=== PATIENT | female | born 1995 | race Caucasian/White ===

== ENCOUNTER 2019-04-24 12:58 | Emergency (ER) | payer MEDICAID, OTHER ==
[~2019-04-24] VITALS: Ht 152.4 cm; Wt 89.0 kg
[2019-04-24 13:03] VITALS: BP 135/60; PULSE 64; RESP 18; Ht 152.4 cm; Wt 89.0 kg
[2019-04-24] MEDS ORDERED: ACETAMINOPHEN 325 MG TAB PO ONE (13:30)
[2019-04-24] MEDS ORDERED: METO10TA92 PO (13:59)
[2019-04-24] MEDS ORDERED: ACET500C5 PO (13:59)
--- NOTE | 2019-04-24 19:48 | ERD ---
ER Documentation Chief Complaint Chief Complaint [address] [facility] HPI Is a 23-year-old G2, P1 female at approximately 18 weeks gestation presents to the ED complaining of headache since yesterday. Patient describes the pain as a pounding sensation, located behind her left eye and migrating towards the left occipital scalp. Patient reports associated blurry vision and nausea but no vomiting. Denies any neck stiffness. Denies head trauma. Denies any focal weakness. She also reports upper respiratory symptoms for the past 2 days. She reports a fever of 100 F yesterday, as well as a sore throat, runny nose and dry cough. She is 18 weeks , denies any vaginal bleeding or pelvic pain. No vaginal discharge. No urinary symptoms. No other complaints. ROS All systems reviewed and are negative except as per history of present illness. Medications Home Meds Active Scripts Metoclopramide* (Reglan*) 10 Mg Tablet, 10 MG PO Q6 PRN for NAUSEA AND/OR VOMITING, #10 TAB Prov:DISHIGRIKIAN,CHRISTALUR N PA-C 04/24/19 Acetaminophen* (Tylophen*) 500 Mg Capsule, 1 CAP PO Q6H PRN for PAIN AND OR ELEVATED TEMP, #20 CAP Prov:DISHIGRIKIAN,ZEPYUR N PA-C 04/24/19 Allergies Allergies: Coded Allergies: No Known Allergy (Unverified , 04/24/19) PMhx/Soc Medical and Surgical Hx: pt denies Medical Hx, pt denies Surgical Hx Hx Alcohol Use: No Hx Substance Use: No Hx Tobacco Use: No Smoking Status: Never smoker Physical Exam Vitals Vital Signs Date Temp Pulse Resp B/P (MAP) Pulse Ox O2 O2 Flow FiO2 Time Delivery Rate 04/24/19 98.1 64 18 135/60 99 13:03 (85) Physical Exam Const: No acute distress Head: Atraumatic Eyes: Normal Conjunctiva ENT: Normal External Ears, Nose and Mouth. + Posterior OP erythema, no tonsillar edema or exudates. Uvula midline. Normal phonation. Bilateral TMs nonerythematous, nonbulging. External auditory canals normal. Neck: Full range of motion. No meningismus. Resp: Clear to auscultation bilaterally Cardio: Regular rate and rhythm, no murmurs Abd: + Gravid abdomen. soft, non tender, non distended. Normal bowel sounds Skin: No petechiae or rashes Back: No midline or flank tenderness Ext: No cyanosis, or edema Neuro: M/S: Alert and oriented Face: EOMI, face and pharynx with normal sensation and function Motor: Normal strength throughout Sensation: Normal sensation throughout Speech: Normal Cerebel: Normal coordination Normal gait Results 24 hrs Current Medications Medications Dose Sig/Ulises Start Time Status Last (Trade) Ordered Route PRN Stop Time Admin Dose Reason Admin 650 mg ONCE ONCE 04/24/19 DC 04/24/19 Acetaminophen PO 13:30 04/24/19 13:32 (Tylenol 13:31 Tab) Procedures/MDM LABS & DIAGNOSTIC IMAGING: Rapid strep: neg ED COURSE: The patient was given Tylenol The medication was well tolerated and the patient had market improvement in symptoms. The patient remained stable throughout ED course. MEDICAL DECISION MAKIN-year-old female at 18 weeks gestation presents with headache and upper respiratory symptoms. She has no fever here. Vital signs are normal. No hypoxia. Lung sounds are clear on physical exam. She has no focal neurological deficits. I do not think patient needs any advanced imaging at this time. Her headache is likely related to her upper respiratory symptoms, migraine headache is also in the differential. Her symptoms improved after Tylenol. Clinical presentation not consistent with subarachnoid hemorrhage, epidural or subdural hematoma, IC mass, CVA, encephalitis or meningitis. Patient was discharge home with close follow up and mangement by PCP in 48 hours. Strict return precautions dicussed. PRESCRIPTIONS: Tylenol SPECIALIST FOLLOW UP RECOMMENDED: None Patient has been advised to follow up with primary care in 1-2 days. Departure Diagnosis: Primary Impression: Headache Headache type: unspecified Headache chronicity pattern: unspecified pattern Intractability: not intractable Qualified Codes: R51 - Headache Additional Impression: URI (upper respiratory infection) URI type: unspecified URI Qualified Codes: J06.9 - Acute upper respiratory infection, unspecified Condition: Stable Patient Instructions: Self-Care for Headaches Referrals: [facility] YOU HAVE RECEIVED A MEDICAL SCREENING EXAM AND THE RESULTS INDICATE THAT YOU DO NOT HAVE A CONDITION THAT REQUIRES URGENT TREATMENT IN THE EMERGENCY DEPARTMENT. FURTHER EVALUATION AND TREATMENT OF YOUR CONDITION CAN WAIT UNTIL YOU ARE SEEN IN YOUR DOCTORS OFFICE WITHIN THE NEXT 1-2 DAYS. IT IS YOUR RESPONSIBILITY TO MAKE AN APPOINTMENT FOR FOLOW-UP CARE. IF YOU HAVE A PRIMARY DOCTOR --you should call your primary doctor and schedule an appointment IF YOU DO NOT HAVE A PRIMARY DOCTOR YOU CAN CALL OUR PHYSICIAN REFERRAL HOTLINE AT IF YOU CAN NOT AFFORD TO SEE A PHYSICIAN YOU CAN CHOSE FROM THE FOLLOWING [facility] [address] [facility] [address] [facility] [address] [facility] [address] [facility] [address] [facility]. [facility] [address] Additional Instructions: Follow-up with your OB at the clinic. You can take the Tylenol for any headaches or fevers. If you start to notice uncontrollable fevers, worsening headaches, changes in vision or any other concerns, return here. Otherwise follow-up with your OB as scheduled. I am also prescribing you antinausea medications that he can also take. SABINA KYLE PA-C Apr 24, 2019 19:48
== END 2019-04-24 14:07 | disposition home or self-care (01) ==
LOC: FTE 12:58
DX: O99.89 Other specified diseases and conditions complicating pregnancy, childbirth and the puerperium (principal); R51 Headache; O99.512 Diseases of the respiratory system complicating pregnancy, second trimester; J06.9 Acute upper respiratory infection, unspecified; Z3A.18 18 weeks gestation of pregnancy
CPT/HCPCS: 87880; Z7502; Z7610; 99283

== ENCOUNTER 2019-05-01 05:54 | Emergency (ER) | payer MEDICAID ==
[~2019-05-01] VITALS: Ht 157.5 cm; Wt 79.2 kg
[~2019-05-01 05:54] MED LIST: ACET500C5 PO; METO10TA92 PO
[2019-05-01 05:56] VITALS: BP 127/76; PULSE 74; RESP 18; Ht 157.5 cm; Wt 79.2 kg
[2019-05-01] MEDS ORDERED: ACETAMINOPHEN 500 MG TAB PO STA (06:14)
[2019-05-01] MEDS ORDERED: SOD CHLORIDE 0.9% 1,000 ML IV STA (06:14)
[2019-05-01] MEDS ORDERED: ONDANSETRON (ODT) 4 MG TAB ODT STA (06:41)
[2019-05-01] MEDS ORDERED: ONDANSETRON 4 MG INJ IV STA (07:25)
[2019-05-01] MEDS ORDERED: ACET500C5 PO (07:44)
[2019-05-01] MEDS ORDERED: CALC300T4 PO (07:44)
[2019-05-01] MEDS ORDERED: ONDA4TAB14 PO (07:44)
[2019-05-01] MEDS ORDERED: RANI150T35 PO (07:44)
[2019-05-01] MEDS ORDERED: RANITIDINE 150 MG TAB PO ONE (08:00)
--- NOTE | 2019-05-01 08:50 | ERD ---
ER Documentation Chief Complaint Chief Complaint RUQ PAIN RADIATING TO BACK; HX GALSTONES HPI 23-year-old female presenting with right upper quadrant pain radiating to her back. Patient states she has episodes of vomiting. Patient is 18 weeks . Has a history of gallstones. Denies change in urination or bowel movement. Has not taken medications for her pain. Denies chest pain or shortness of breath. Denies medical problems. NKDA. Surgical history denies. Social history denies ROS All systems reviewed and are negative except as per history of present illness. Medications Home Meds Active Scripts Calcium Carbonate* (Tums X-Str) 300 Mg Tab.chew, 300 MG PO BID, #30 TAB.CHEW Prov:SOSA ROSARIO PA-C 05/01/19 Ranitidine Hcl* (Zantac*) 150 Mg Tablet, 150 MG PO BID PRN for EPIGASTRIC PAIN, #30 TAB Prov:SOSA ROSARIO PA-C 05/01/19 Ondansetron (Ondansetron Odt) 4 Mg Tab.rapdis, 4 MG PO Q6H PRN for NAUSEA AND/OR VOMITING, #10 TAB Prov:SOSA ROSARIO PA-C 05/01/19 Acetaminophen* (Tylophen*) 500 Mg Capsule, 2 CAP PO Q8H PRN for PAIN AND OR ELEVATED TEMP, #20 CAP Prov:SOSA ROSARIO PA-C 05/01/19 Metoclopramide* (Reglan*) 10 Mg Tablet, 10 MG PO Q6 PRN for NAUSEA AND/OR VOMITING, #10 TAB Prov:SABINA KYLEC 04/24/19 Acetaminophen* (Tylophen*) 500 Mg Capsule, 1 CAP PO Q6H PRN for PAIN AND OR ELEVATED TEMP, #20 CAP Prov:DISHIGRIKIANZEPYUR Tera BARBOUR-C 04/24/19 Allergies Allergies: Coded Allergies: No Known Allergy (Unverified , 04/24/19) PMhx/Soc Hx Miscellaneous Medical Probl: Yes (gallstones) Hx Alcohol Use: No Hx Substance Use: No Hx Tobacco Use: No Smoking Status: Never smoker FmHx Family History: No diabetes, No coronary disease, No other Physical Exam Vitals Vital Signs Date Temp Pulse Resp B/P (MAP) Pulse Ox O2 O2 Flow FiO2 Time Delivery Rate 05/01/19 97.0 74 18 127/76 100 05:56 (93) Physical Exam GENERAL: The patient is well-appearing, well-nourished, in no acute distress CHEST: Clear to auscultation bilaterally. There are no rales, wheezes or rhonchi. HEART: Regular rate and rhythm. No murmurs, clicks, rubs or gallops. ABDOMEN: Normal active bowel sounds. No distention. Tender palpation the epigastric region with no rebound tenderness. Result Diagram: 05/01/19 0633 05/01/19 0633 Results 24 hrs Laboratory Tests Test 05/01/19 06:33 White Blood Count 8.4 10^3/ul Red Blood Count 4.44 10^6/ul Hemoglobin 13.0 g/dl Hematocrit 39.0 % Mean Corpuscular Volume 87.8 fl Mean Corpuscular Hemoglobin 29.3 pg Mean Corpuscular Hemoglobin Concent 33.3 g/dl Red Cell Distribution Width 13.0 % Platelet Count 263 10^3/UL Mean Platelet Volume 9.7 fl Immature Granulocytes % 0.800 % Neutrophils % 68.3 % Lymphocytes % 25.5 % Monocytes % 3.7 % Eosinophils % 1.3 % Basophils % 0.4 % Nucleated Red Blood Cells % 0.0 /100WBC Immature Granulocytes # 0.070 10^3/ul Neutrophils # 5.7 10^3/ul Lymphocytes # 2.1 10^3/ul Monocytes # 0.3 10^3/ul Eosinophils # 0.1 10^3/ul Basophils # 0.0 10^3/ul Nucleated Red Blood Cells # 0.0 10^3/ul Urine Color YELLOW Urine Clarity SLIGHTLY CLOUDY Urine pH 5.0 Urine Specific [place] 1.027 Urine Ketones NEGATIVE mg/dL Urine Nitrite NEGATIVE mg/dL Urine Bilirubin NEGATIVE mg/dL Urine Urobilinogen NEGATIVE mg/dL Urine Leukocyte Esterase NEGATIVE Kayden/ul Urine Microscopic RBC 21 /HPF Urine Microscopic WBC 3 /HPF Urine Squamous Epithelial Cells FEW /HPF Urine Mucus FEW /HPF Urine Hemoglobin 3+ mg/dL Urine Glucose NEGATIVE mg/dL Urine Total Protein NEGATIVE mg/dl Sodium Level 141 mmol/L Potassium Level 3.7 mmol/L Chloride Level 106 mmol/L Carbon Dioxide Level 26 mmol/L Anion Gap 9 Blood Urea Nitrogen 8 mg/dl Creatinine 0.49 mg/dl Est Glomerular Filtrat Rate mL/min > 60 mL/min Glucose Level 103 mg/dl Calcium Level 9.5 mg/dl Total Bilirubin 0.3 mg/dl Direct Bilirubin 0.00 mg/dl Indirect Bilirubin 0.3 mg/dl Aspartate Amino Transf (AST/SGOT) 24 IU/L Alanine Aminotransferase (ALT/SGPT) 31 IU/L Alkaline Phosphatase 86 IU/L Total Protein 7.8 g/dl Albumin 4.1 g/dl Globulin 3.70 g/dl Albumin/Globulin Ratio 1.10 Lipase 33 U/L Current Medications Medications Dose Sig/Ulises Start Time Status Last (Trade) Ordered Route PRN Stop Time Admin Dose Reason Admin Sodium 1,000 ml @ Q1H STAT 05/01/19 DC 05/01/19 Chloride 1,000 mls/hr IV 06:14 06:44 05/01/19 07:13 1,000 mg ONCE STAT 05/01/19 DC 05/01/19 Acetaminophen PO 06:14 06:44 (Tylenol 05/01/19 06:16 Tab) Ondansetron 4 mg ONCE STAT 05/01/19 DC 05/01/19 HCl (Zofran ODT 06:41 06:44 Odt) 05/01/19 06:42 Ondansetron 2 mg ONCE STAT 05/01/19 DC 05/01/19 HCl (Zofran IV 07:25 07:48 Inj) 05/01/19 07:26 Ranitidine 150 mg ONCE ONCE 05/01/19 DC 05/01/19 HCl PO 08:00 07:48 (Zantac) 05/01/19 08:01 Procedures/MDM DIAGNOSTIC IMAGING REPORT Patient: NIKI OSULLIVAN : 1995 Age: 23 Sex: F MR #: [id number] DOS: 05/01/19613 Ordering MD: OLAYINKA ROSARIO PA-C Location: [facility] Room/Bed: PROCEDURE: US Abdomen. CLINICAL INDICATION: Pain TECHNIQUE: Multiple real-time images were acquired of the patient's abdomen and retroperitoneum utilizing a high resolution transducer. COMPARISON: None FINDINGS: Multiple gallstones without gallbladder wall thickening or pericholecystic fluid. Common bile duct mildly dilated maximal transverse diameter by 0.67 mm. No intrahepatic biliary ductal dilation. Only portions the pancreas could be visualized due to overlying bowel gas and those portions are unremarkable. The liver is enlarged maximal sagittal dimension 17.75 cm. Hepatic fatty infiltration. No focal hepatic lesions. Normal portal venous flow. Right kidney normal in size maximal sagittal mention 11.77 cm. Normal right renal parenchymal echogenicity without hydronephrosis intra renal mass or calculus. IMPRESSION: 1. Multiple gallstones without gallbladder wall thickening or pericholecystic. 2. Mild dilated common bile duct maximal transverse diameter 5.67 mm. Negative intrapelvic biliary ductal dilation. 3. Hepatomegaly with hepatic fatty infiltration. 4. Unremarkable right kidney and pancreas as described above. ER Course: 1 L normal saline given in ED. Ranitidine and Zofran with Tylenol given. MDM: 23-year-old female presenting with abdominal pain. I have low suspicion for bowel obstruction. Patient has findings consistent with nephrolithiasis however I have low suspicion for choledocholithiasis or cholangitis. I have low suspicion for Lesley cystitis. Patient is recommended however to return in 2 days of pain persists or worsens. Patient may need to have recheck done to ensure that there is no signs of choledocholithiasis. Patient's blood work is normal at today's visit. Patient is discharged with strict ER precautions and told to follow-up with primary care within 1 to 2 days for close evaluation. All questions answered at discharge Departure Diagnosis: Primary Impression: Gallstones Condition: Stable Patient Instructions: Gallstones Referrals: [facility] YOU HAVE RECEIVED A MEDICAL SCREENING EXAM AND THE RESULTS INDICATE THAT YOU DO NOT HAVE A CONDITION THAT REQUIRES URGENT TREATMENT IN THE EMERGENCY DEPARTMENT. FURTHER EVALUATION AND TREATMENT OF YOUR CONDITION CAN WAIT UNTIL YOU ARE SEEN IN YOUR DOCTORS OFFICE WITHIN THE NEXT 1-2 DAYS. IT IS YOUR RESPONSIBILITY TO MAKE AN APPOINTMENT FOR FOL-UP CARE. IF YOU HAVE A PRIMARY DOCTOR --you should call your primary doctor and schedule an appointment IF YOU DO NOT HAVE A PRIMARY DOCTOR YOU CAN CALL OUR PHYSICIAN REFERRAL HOTLINE AT IF YOU CAN NOT AFFORD TO SEE A PHYSICIAN YOU CAN CHOSE FROM THE FOLLOWING [facility] [address] [facility]. [facility] [address] [facility] [address] [facility]. [facility] [address] [facility] [address] [facility]. [facility]. [address] Additional Instructions: FOLLOW UP WITH YOUR PRIMARY CARE PHYSICIAN TOMORROW.Return to this facility if you are not improving as expected. SOSA ROSARIO PA-C May 01, 2019 08:50
== END 2019-05-01 08:26 | disposition home or self-care (01) ==
LOC: FTE 05:54
DX: O99.612 Diseases of the digestive system complicating pregnancy, second trimester (principal); K80.20 Calculus of gallbladder without cholecystitis without obstruction; Z3A.18 18 weeks gestation of pregnancy
CPT/HCPCS: 36415; 76705; 80053; 81001; 83690; 85025; 96374; J2405; J7030; Z7502; Z7610